=== PATIENT | male | born 1970 | race Caucasian/White ===

== ENCOUNTER 2023-08-25 09:18 | Outpatient (CLI) | payer OTHER, SELFPAY ==
--- OUTSIDE RECORDS SUMMARY | 2023-08-25 09:34 | XMS_ITS | Clinical Summary ---
Author Organization [employer] Address [address], [place] [address] Care Team Providers Care Radio Interference Trouble Shooter Name Role Phone Denisha Gordon PA-C Primary Care Provider [phone] Source Comments You are receiving this document as you are listed as the primary care provider,follow-up provider, or the patient has been referred to you for consultation.This is in compliance with the Medicare and[facility] System[facility] EHR Incentive Program,which states Providers who transition their patient to another setting of careor provider of care or refers their patient to another provider of care shouldprovide summary care record for each transition of care or referral. [employer] Allergies Active Allergy Reactions Criticality Noted Date Comments Ergocalciferol Other, see comments 08/01/2005 kidney stone Medications Medication Sig Dispensed Refills Start Date End Date Status loratadine (CLARITIN) 10 MG tablet Take 1 tablet by mouth daily as needed. LW Addl Instr:Indicated for: Allergies 90 3 05/11/2007 Active Multiple Vitamins-Minerals (MULTIVITAMIN ADULT OR) Take 1 tablet by mouth daily (every 24 hours). 02/12/2012 Active fluticasone (FLONASE) 50 MCG/ACT nasal solution USE 1 TO 2 SPRAYS IN EACH NOSTRIL DAILY 16 g 3 10/21/2018 Active buPROPion (WELLBUTRIN SR) 150 MG 12 hour release tabletIndications:Samuel or depressive disorder, recurrent, moderate (HRC) TAKE 1 TABLET BY MOUTH TWICE DAILY 180 Tablet 12/12/2021 Active atorvastatin (LIPITOR) 40 MG tabletIndications:Hyp erlipidemia, unspecified hyperlipidemia type (HRC) TAKE 1 TABLET BY MOUTH DAILY AT BEDTIME 90 Tablet 01/03/2022 Active citalopram (CELEXA) 20 MG tabletIndications:Anx iety (HRC) TAKE 1 TABLET BY MOUTH DAILY 90 Tablet 01/03/2022 Active Active Problems Problem Noted Date Diagnosed Date Pre-diabetes 01/16/2021 Hyperlipidemia 03/16/2013 Major depressive disorder, recurrent episode, mo derate 02/12/2012 Anxiety 02/12/2012 Allergic rhinitis 06/29/2007 Resolved Problems Problem Noted Date Diagnosed Date Resolved Date Impaired fasting glucose 04/14/201710/2020 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 04/14/2017 Overview: Lactose Intolerance Immunizations Name Administration Dates Next Due Flu Vac Preserv Free (3+yrs) 02/12/2012,01/11/20 10 Influenza IIV4 (Quadrivalent ) 0.5mL (19531) 01/16/2021,04/14/2017,11/29/2015, 015,10/25/2013 Moderna Monovalent 12+ 07/01/2020,06/03/2020 TDAP (ADACEL) 06/29/2007 Td (7+ yrs) 04/14/2017 Family History Medical History Relation Name Comments Cancer Father Cancer, Colon Father s/p Colectomy with colostomy Cataract Father High Cholesterol Father Colon cance r Stroke Father Arthritis Mother Emphysema Mother High Cholesterol Mother Breast canc er Depression Brother High Cholesterol Brother Anxiety Relation Name Status Comments Father Alive Mother Alive Brother Alive Maternal Grandfather Maternal Grandmother Paternal Grandfather Paternal Grandmother Social History Tobacco Use Types Packs/Day Years Used Date Smoking Tobacco: Never Smokeless Tobacco: Never Alcohol Use Standard Drinks/Week Comments Yes 2 (1 standard drink = 0.6 oz pur e alcohol) monthly PHQ-2 Answer Date Recorded PHQ-2 Score 5 01/16/2021 Sex and Gender Information Value Date Recorded Sex Assigned at Not on file Gender Identity Not on file Sexual Orientation Not on file Last Filed Vital Signs Vital Sign Reading Time Taken Comments Blood Pressure 123/72 01/16/2021 8:56 AM PRECISION INSPECTOR Pulse 66 01/16/2021 8:56 AM PRECISION INSPECTOR Temperature 36.2 ??C (97.2 ??F) 02/14/2014 2:29 PM CS T Respiratory Rate 16 12/28/2012 11:25 AM PRECISION INSPECTOR Oxygen Saturation 98% 12/28/2012 11:25 AM PRECISION INSPECTOR Inhaled Oxygen Concentration - - Weight 85 kg (187 lb 8 oz) 01/16/2021 8:56 AM CS T Height 178 cm (5' 10.08) 01/16/2021 8:56 AM PRECISION INSPECTOR Body Mass Index 26.84 01/16/2021 8:56 AM PRECISION INSPECTOR Plan of Treatment Health Maintenance Due Date Last Done Comments Hep C Screening (Preventive Services) 1971 PSA Screening Discussion 1971 HepB (1) 10/29/1990 FIT Colon Cancer Screening 2015 Colonoscopy 12/28/2017 12/28/2012 (Completed) Zoster/Shingles (1 of 2) 10/29/2021 Adult Preventive Visit 01/16/2022 , 08/17/2018, 04/14/2017, Additional history exists Prediabetes: HGBA1C 01/16/2022 01/16/2021, 11/29/2015, 09/16/2012, Additional history exists COVID-19 Vaccine ( season) 2022 07/01/2020, 06/03/2020 Influenza (#1) 2023 01/16/2021, 03/0 08/2017, 11/29/2015, Additional history exists Cholesterol 01/16/2026 01/16/2021, 03/0 08/2017, 11/29/2015, Additional history exists DTaP/Tdap/Td (3 - Tdap) 04/15/2027 04/15/19 18, 06/29/2007, 06/29/2007 HIV Screening (Preventive Services) Completed 01/16/2021 HepA Aged Out No longer eligi ble based on patient's age to complete this topic Hib Aged Out No longer eligi ble based on patient's age to complete this topic IPV (Polio) Aged Out No longer eligi ble based on patient's age to complete this topic MCV4 Aged Out No longer eligi ble based on patient's age to complete this topic Pneumococcal Aged Out No longer eligi ble based on patient's age to complete this topic Procedures Procedure Name Priority Date/Time Associated Diagnosis Comments HGB A1C Routine 01/16/2021 9:47 AM PRECISION INSPECTOR Pre-diabetes HIV 1/2 AG/AB 4TH GEN Routine 01/16/2021 9:47 AM PRECISION INSPECTOR Screening for HIV (human immunodeficiency virus) LIPID PANEL & DIRECT LDL (IF NEEDED) Routine 01/16/2021 9:47 AM PRECISION INSPECTOR Hyperlipidemia, unspecified hyperlipidemia type from Last 3 Months or Most Recently Relevant to Health Maintenance Results * HIV 1/2 Ag/Ab 4th Generation (01/16/2021 9:47 AM PRECISION INSPECTOR) Pathologist [facility] HIV 1/2 Antigen/Antib flaco (4th generation) Negative (Non Reactive) Negative (Non Reactive) 01/16/2021 1:44 PM PRECISION INSPECTOR [facility] Comment:HIV-1 p24 Antigen an d HIV-1/HIV-2 Antibody not detected Blood Venipuncture / Unknown 01/16/2021 9:47 AM PRECISION INSPECTOR 01/16/2021 9:47 AM PRECISION INSPECTOR Denisha Gordon PA-C LAB_1 [facility] [address] * (ABNORMAL) Lipid Panel - LDLD If Trig High (01/16/2021 9:47 AM PRECISION INSPECTOR) Pathologist [facility] Cholesterol 157 0 - 199 mg/dL 01/16/2021 3:30 PM [facility] Triglyceride 260(H) <=149 mg/dL 01/16/2021 3:30 PM [facility] HDL Cholesterol 28(L) >=40 mg/dL 3:30 PM [facility] LDL, Calculated 77 <130 mg/dL 3:30 PM [facility] Non HDL Chol, Calculated 129 <=159 mg/dL 01/16/2021 3:30 PM [facility] Cholesterol/HDL Ratio 5.6 01/16/2021 3:30 PM PRECISION INSPECTOR [facility] Hours Fasting 12 01/16/2021 3:30 PM PRECISION INSPECTOR [facility] Blood Venipuncture / Unknown 01/16/2021 9:47 AM PRECISION INSPECTOR 01/16/2021 9:47 AM PRECISION INSPECTOR Denisha Gordon PA-C LAB[facility]1 [facility] [address] [place] [address], [facility] [phone] [facility] [address] [place] [address], [place] [phone] * (ABNORMAL) Hgb A1C (01/16/2021 9:47 AM PRECISION INSPECTOR) Hemoglobin A1C 10.8(H) <=5.6 % 01/16/2021 2:24 PM PRECISION INSPECTOR [facility] Blood Venipuncture / Unknown 01/16/2021 9:47 AM PRECISION INSPECTOR 01/16/2021 9:47 AM PRECISION INSPECTOR Narrative [facility] - 01/16/2021 2:24 PM PRECISION INSPECTOR For patients not previously diagnosed with diabetes: 5.7-6.4%: Increased risk for diabetes 6.5% and greater: Diagnostic for diabetes For patients diagnosed with diabetes: <8.0%: Goal of therapy for ages 18-75 Clinicians may recommend a higher or lower goal for specific individuals. Denisha Gordon PA-C LAB[facility]1 [facility] [address] [address], [facility] [phone] from Last 3 Months or Most Recently Relevant to Health Maintenance Care Teams Radio Interference Trouble Shooter Relationship Specialty Start Date End Date Denisha Gordon, PAChuckyC [address] [place] [address] PCP - General Physician Electromechanic 04/14/17
== END 2023-08-25 09:19 | disposition home or self-care (01) ==
PROVIDERS: Visit Provider Family Medicine
DX: E78.5 Hyperlipidemia, unspecified (principal); R53.83 Other fatigue; M25.50 Pain in unspecified joint; R21 Rash and other nonspecific skin eruption; Z12.5 Encounter for screening for malignant neoplasm of prostate
CPT/HCPCS: 80053; 80061; 84443; 86140; 86618; G0103

== ENCOUNTER 2023-09-02 10:53 | Outpatient (CLI) | payer OTHER, SELFPAY ==
--- OUTSIDE RECORDS SUMMARY | 2023-09-06 10:26 | XMS_ITS | Clinical Summary ---
Author Organization [employer] Address [address] [address] Care Team Providers Care Plastic Battery Assembler Name Role Phone Denisha Gordon PA-C Primary Care Provider [phone] Source Comments You are receiving this document as you are listed as the primary care provider,follow-up provider, or the patient has been referred to you for consultation.This is in compliance with the Medicare and[facility] EHR Incentive Program,which states Providers who transition their patient to another setting of careor provider of care or refers their patient to another provider of care shouldprovide summary care record for each transition of care or referral. [employer] Allergies Active Allergy Reactions Criticality Noted Date [...] 02/12/2012,01/11/20 10 Influenza IIV4 (Quadrivalent ) 0.5mL (47952) 01/16/2021,04/14/2017,11/29/2015, 015,10/25/2013 Moderna Monovalent 12+ 07/01/2020,06/03/2020 TDAP [...] Comments Blood Pressure 123/72 01/16/2021 8:56 AM POLITICAL WORKER Pulse 66 01/16/2021 8:56 AM POLITICAL WORKER Temperature 36.2 ??C (97.2 ??F) 02/14/2014 2:29 PM CS T Respiratory Rate 16 12/28/2012 11:25 AM POLITICAL WORKER Oxygen Saturation 98% 12/28/2012 11:25 AM POLITICAL WORKER Inhaled Oxygen Concentration - - Weight 85 kg (187 lb 8 oz) 01/16/2021 8:56 AM CS T Height 178 cm (5' 10.08) 01/16/2021 8:56 AM POLITICAL WORKER Body Mass Index 26.84 01/16/2021 8:56 AM POLITICAL WORKER Plan of Treatment Health Maintenance Due Date [...] Comments HGB A1C Routine 01/16/2021 9:47 AM POLITICAL WORKER Pre-diabetes HIV 1/2 AG/AB 4TH GEN Routine 01/16/2021 9:47 AM POLITICAL WORKER Screening for HIV (human immunodeficiency virus) LIPID PANEL & DIRECT LDL (IF NEEDED) Routine 01/16/2021 9:47 AM POLITICAL WORKER Hyperlipidemia, unspecified hyperlipidemia type from Last 3 Months or Most Recently Relevant to Health Maintenance Results * HIV 1/2 Ag/Ab 4th Generation (01/16/2021 9:47 AM POLITICAL WORKER) Pathologist [facility] HIV 1/2 Antigen/Antib flaco (4th generation) Negative (Non Reactive) Negative (Non Reactive) 01/16/2021 1:44 PM POLITICAL WORKER [facility] Comment:HIV-1 p24 Antigen an d HIV-1/HIV-2 Antibody not detected Blood Venipuncture / Unknown 01/16/2021 9:47 AM POLITICAL WORKER 01/16/2021 9:47 AM POLITICAL WORKER Denisha Gordon PA-C LAB_1 [facility] [address] * (ABNORMAL) Lipid Panel - LDLD If Trig High (01/16/2021 9:47 AM POLITICAL WORKER) Pathologist [facility] Cholesterol 157 0 - 199 mg/dL 01/16/2021 3:30 PM [facility] Triglyceride 260(H) <=149 mg/dL 01/16/2021 3:30 PM [facility] HDL Cholesterol 28(L) >=40 mg/dL 3:30 PM [facility] LDL, Calculated 77 <130 mg/dL 3:30 PM [facility] Non HDL Chol, Calculated 129 <=159 mg/dL 01/16/2021 3:30 PM [facility] Cholesterol/HDL Ratio 5.6 01/16/2021 3:30 PM POLITICAL WORKER [facility] Hours Fasting 12 01/16/2021 3:30 PM POLITICAL WORKER [facility] Blood Venipuncture / Unknown 01/16/2021 9:47 AM POLITICAL WORKER 01/16/2021 9:47 AM POLITICAL WORKER Denisha Gordon PA-C LAB_1 [facility] [address] [place] [address], [facility] [phone] [facility] [address] [place] [address], [place] [phone] * (ABNORMAL) Hgb A1C (01/16/2021 9:47 AM POLITICAL WORKER) Hemoglobin A1C 10.8(H) <=5.6 % 01/16/2021 2:24 PM POLITICAL WORKER [facility] Blood Venipuncture / Unknown 01/16/2021 9:47 AM POLITICAL WORKER 01/16/2021 9:47 AM POLITICAL WORKER Narrative [facility] - 01/16/2021 2:24 PM POLITICAL WORKER For patients not previously diagnosed with diabetes: 5.7-6.4%: Increased risk for diabetes 6.5% and greater: Diagnostic for diabetes For patients diagnosed with diabetes: <8.0%: Goal of therapy for ages 18-75 Clinicians may recommend a higher or lower goal for specific individuals. Denisha Gordon PA-C LAB[facility]1 [facility] [address] [address], [facility] [phone] from Last 3 Months or Most Recently Relevant to Health Maintenance Care Teams Plastic Battery Assembler Relationship Specialty Start Date End Date Denisha Gordon, PAChuckyC [address] [place] [address] PCP - General Physician Porcelain Finisher 04/14/17
== END 2023-09-02 10:54 | disposition home or self-care (01) ==
LOC: NFLDREF 09-06 10:18
PROVIDERS: PCP Family Medicine; Visit Provider Family Medicine
DX: Z00.00 Encounter for general adult medical examination without abnormal findings (principal); E11.9 Type 2 diabetes mellitus without complications; F33.0 Major depressive disorder, recurrent, mild; F41.9 Anxiety disorder, unspecified; E78.5 Hyperlipidemia, unspecified; R21 Rash and other nonspecific skin eruption; E11.65 Type 2 diabetes mellitus with hyperglycemia
CPT/HCPCS: 84681; 86341

== ENCOUNTER 2023-09-28 10:10 | Outpatient (CLI) | payer OTHER, SELFPAY ==
--- OUTSIDE RECORDS SUMMARY | 2023-09-28 10:12 | XMS_ITS | Clinical Summary ---
Author Organization [facility] Address [address], [place] [address] Care Team Providers Care Poultry Offal Worker Name Role Phone Denisha Gordon PA-C Primary Care Provider [phone] Source Comments You are receiving this document as you are listed as the primary care provider,follow-up provider, or the patient has been referred to you for consultation.This is in compliance with the Medicare and[facility] EHR Incentive Program,which states Providers who transition their patient to another setting of careor provider of care or refers their patient to another provider of care shouldprovide summary care record for each transition of care or referral. [facility] Allergies Active Allergy Reactions Criticality Noted Date [...] de ficiencies and disaccharide malabsorption 06/29/2007 04/14/2017 Overview (09/30/2016): Lactose Intolerance Immunizations Name Administration Dates Next Due Flu Vac Preserv Free (3+yrs) 02/12/2012,01/11/20 10 Influenza IIV4 (Quadrivalent ) 0.5mL (43304) 01/16/2021,04/14/2017,11/29/2015, 015,10/25/2013 Moderna Monovalent 12+ 07/01/2020,06/03/2020 TDAP [...] Comments Blood Pressure 123/72 01/16/2021 8:56 AM MANAGER STORE Pulse 66 01/16/2021 8:56 AM MANAGER STORE Temperature 36.2 ??C (97.2 ??F) 02/14/2014 2:29 PM CS T Respiratory Rate 16 12/28/2012 11:25 AM MANAGER STORE Oxygen Saturation 98% 12/28/2012 11:25 AM MANAGER STORE Inhaled Oxygen Concentration - - Weight 85 kg (187 lb 8 oz) 01/16/2021 8:56 AM CS T Height 178 cm (5' 10.08) 01/16/2021 8:56 AM MANAGER STORE Body Mass Index 26.84 01/16/2021 8:56 AM MANAGER STORE Plan of Treatment Health Maintenance Due Date [...] Comments HGB A1C Routine 01/16/2021 9:47 AM MANAGER STORE Pre-diabetes HIV 1/2 AG/AB 4TH GEN Routine 01/16/2021 9:47 AM MANAGER STORE Screening for HIV (human immunodeficiency virus) LIPID PANEL & DIRECT LDL (IF NEEDED) Routine 01/16/2021 9:47 AM MANAGER STORE Hyperlipidemia, unspecified hyperlipidemia type from Last 3 Months or Most Recently Relevant to Health Maintenance Results * HIV 1/2 Ag/Ab 4th Generation (01/16/2021 9:47 AM MANAGER STORE) HIV 1/2 Antigen/Antib flaco (4th generation) Negative (Non Reactive) Negative (Non Reactive) 01/16/2021 1:44 PM MANAGER STORE [facility] Comment:HIV-1 p24 Antigen an d HIV-1/HIV-2 Antibody not detected Blood Venipuncture / Unknown 01/16/2021 9:47 AM MANAGER STORE 01/16/2021 9:47 AM MANAGER STORE Denisha Gordon PA-C LAB[facility]1 [facility] [address] * (ABNORMAL) Lipid Panel - LDLD If Trig High (01/16/2021 9:47 AM MANAGER STORE) Cholesterol 157 0 - 199 mg/dL 01/16/2021 3:30 PM [facility] Triglyceride 260(H) <=149 mg/dL 01/16/2021 3:30 PM [facility] HDL Cholesterol 28(L) >=40 mg/dL 3:30 PM [facility] LDL, Calculated 77 <130 mg/dL 3:30 PM [facility] Non HDL Chol, Calculated 129 <=159 mg/dL 01/16/2021 3:30 PM [facility] Cholesterol/HDL Ratio 5.6 01/16/2021 3:30 PM MANAGER STORE [facility] Hours Fasting 12 01/16/2021 3:30 PM MANAGER STORE [facility] Blood Venipuncture / Unknown 01/16/2021 9:47 AM MANAGER STORE 01/16/2021 9:47 AM MANAGER STORE Denisha Gordon PA-C LAB[facility]1 [facility] [address] [place] [address], [place] [phone] [facility] [address] [place] [address], [facility] [phone] * (ABNORMAL) Hgb A1C (01/16/2021 9:47 AM MANAGER STORE) Hemoglobin A1C 10.8(H) <=5.6 % 01/16/2021 2:24 PM MANAGER STORE [email or web address] Blood Venipuncture / Unknown 01/16/2021 9:47 AM MANAGER STORE 01/16/2021 9:47 AM MANAGER STORE Narrative [facility] - 01/16/2021 2:24 PM MANAGER STORE For patients not previously diagnosed with diabetes: 5.7-6.4%: Increased risk for diabetes 6.5% and greater: Diagnostic for diabetes For patients diagnosed with diabetes: <8.0%: Goal of therapy for ages 18-75 Clinicians may recommend a higher or lower goal for specific individuals. Denisha Gordon PA-C LAB[facility]1 [facility] [address] [address], [facility] [phone] from Last 3 Months or Most Recently Relevant to Health Maintenance Care Teams Poultry Offal Worker Relationship Specialty Start Date End Date Denisha Gordon PA-C [address] [place] [address] PCP - General Physician Resilient Tile Installer 04/14/17
== END 2023-09-28 10:11 | disposition home or self-care (01) ==
LOC: OP CLINIC 10:11
PROVIDERS: PCP Family Medicine; Visit Provider Surgery
DX: Z53.8 Procedure and treatment not carried out for other reasons (principal)

== ENCOUNTER 2023-10-29 09:44 | Outpatient (CLI) | payer OTHER, SELFPAY ==
--- OUTSIDE RECORDS SUMMARY | 2023-10-29 09:46 | XMS_ITS | Clinical Summary ---
Author Organization [employer] Address [address], [place] [address] Care Team Providers Care Senior Product Manager Name Role Phone Denisha Gordon PA-C Primary Care Provider [phone] Source Comments You are receiving this document as you are listed as the primary care provider,follow-up provider, or the patient has been referred to you for consultation.This is in compliance with the Medicare and[facility] EHR Incentive Program,which states Providers who transition their patient to another setting of careor provider of care or refers their patient to another provider of care shouldprovide summary care record for each transition of care or referral. [employer] Allergies Active Allergy Reactions Criticality Noted Date [...] 02/12/2012,01/11/20 10 Influenza IIV4 (Quadrivalent ) 0.5mL ([id number]) 01/16/2021,04/14/2017,11/29/2015, 015,10/25/2013 Moderna Monovalent 12+ 07/01/2020,06/03/2020 TDAP [...] Comments Blood Pressure 123/72 01/16/2021 8:56 AM AUTOMOTIVE PAINTER Pulse 66 01/16/2021 8:56 AM AUTOMOTIVE PAINTER Temperature 36.2 ??C (97.2 ??F) 02/14/2014 2:29 PM CS T Respiratory Rate 16 12/28/2012 11:25 AM AUTOMOTIVE PAINTER Oxygen Saturation 98% 12/28/2012 11:25 AM AUTOMOTIVE PAINTER Inhaled Oxygen Concentration - - Weight 85 kg (187 lb 8 oz) 01/16/2021 8:56 AM CS T Height 178 cm (5' 10.08) 01/16/2021 8:56 AM AUTOMOTIVE PAINTER Body Mass Index 26.84 01/16/2021 8:56 AM AUTOMOTIVE PAINTER Plan of Treatment Health Maintenance Due Date Last Done Comments Hep C Screening (Preventive Services) 1971 PSA Screening Discussion 1971 HepB (1) 10/29/1990 FIT Colon Cancer Screening 2015 Colonoscopy 12/28/2017 12/28/2012 (Completed) Zoster/Shingles (1 of 2) 10/29/2021 Adult Preventive Visit 01/16/2022 , 08/17/2018, 04/14/2017, Additional history exists Prediabetes: HGBA1C 01/16/2022 01/16/2021, 11/29/2015, 09/16/2012, Additional history exists COVID-19 Vaccine ( season) 2023 07/01/2020, 06/03/2020 Influenza (#1) 2023 01/16/2021, 03/0 [...] Comments HGB A1C Routine 01/16/2021 9:47 AM AUTOMOTIVE PAINTER Pre-diabetes HIV 1/2 AG/AB 4TH GEN Routine 01/16/2021 9:47 AM AUTOMOTIVE PAINTER Screening for HIV (human immunodeficiency virus) LIPID PANEL & DIRECT LDL (IF NEEDED) Routine 01/16/2021 9:47 AM AUTOMOTIVE PAINTER Hyperlipidemia, unspecified hyperlipidemia type from Last 3 Months or Most Recently Relevant to Health Maintenance Results * HIV 1/2 Ag/Ab 4th Generation (01/16/2021 9:47 AM AUTOMOTIVE PAINTER) HIV 1/2 Antigen/Antib flaco (4th generation) Negative (Non Reactive) Negative (Non Reactive) 01/16/2021 1:44 PM AUTOMOTIVE PAINTER [facility] Comment:HIV-1 p24 Antigen an d HIV-1/HIV-2 Antibody not detected Blood Venipuncture / Unknown 01/16/2021 9:47 AM AUTOMOTIVE PAINTER 01/16/2021 9:47 AM AUTOMOTIVE PAINTER Denisha Gordon PA-C LAB[facility]1 [facility] [address] * (ABNORMAL) Lipid Panel - LDLD If Trig High (01/16/2021 9:47 AM AUTOMOTIVE PAINTER) Cholesterol 157 0 - 199 mg/dL 01/16/2021 3:30 PM [facility] Triglyceride 260(H) <=149 mg/dL 01/16/2021 3:30 PM [facility] HDL Cholesterol 28(L) >=40 mg/dL 3:30 PM [facility] LDL, Calculated 77 <130 mg/dL 3:30 PM [facility] Non HDL Chol, Calculated 129 <=159 mg/dL 01/16/2021 3:30 PM [facility] Cholesterol/HDL Ratio 5.6 01/16/2021 3:30 PM AUTOMOTIVE PAINTER [facility] Hours Fasting 12 01/16/2021 3:30 PM AUTOMOTIVE PAINTER [facility] Blood Venipuncture / Unknown 01/16/2021 9:47 AM AUTOMOTIVE PAINTER 01/16/2021 9:47 AM AUTOMOTIVE PAINTER Denisha Gordon PA-C LAB[facility]1 [facility] [address] [place] [address], [place] [phone] [facility] [address] [place] [address], [facility] [phone] * (ABNORMAL) Hgb A1C (01/16/2021 9:47 AM AUTOMOTIVE PAINTER) Hemoglobin A1C 10.8(H) <=5.6 % 01/16/2021 2:24 PM AUTOMOTIVE PAINTER [facility] Blood Venipuncture / Unknown 01/16/2021 9:47 AM AUTOMOTIVE PAINTER 01/16/2021 9:47 AM AUTOMOTIVE PAINTER Narrative [facility] - 01/16/2021 2:24 PM AUTOMOTIVE PAINTER For patients not previously diagnosed with diabetes: 5.7-6.4%: Increased risk for diabetes 6.5% and greater: Diagnostic for diabetes For patients diagnosed with diabetes: <8.0%: Goal of therapy for ages 18-75 Clinicians may recommend a higher or lower goal for specific individuals. Denisha Gordon PA-C [facility] [address] [address], [facility] [phone] from Last 3 Months or Most Recently Relevant to Health Maintenance Care Teams Senior Product Manager Relationship Specialty Start Date End Date Denisha Gordon PA-C [address] [place] [address] PCP - General Physician Cam Milling Machine Operator 04/14/17
--- NOTE | 2023-10-29 11:22 | W.ANESCHARGE ---
Anesthesia Charges Start Date/Time Anesthesia Start Date: 10/29/23 Anesthesia Start Time: 10:45 Stop Date/Time Anesthesia Stop Date: 10/29/23 Anesthesia Stop Time: 11:22
--- NOTE | 2023-10-29 13:39 | W.ANESCHARGE ---
Anesthesia Charges Start Date/Time Anesthesia Start Date: 10/29/23 Anesthesia Start Time: 10:45 Stop Date/Time Anesthesia Stop Date: 10/29/23 Anesthesia Stop Time: 11:22
== END 2023-10-29 09:45 | disposition home or self-care (01) ==
LOC: OP CLINIC 09:45
PROVIDERS: PCP Family Medicine; Visit Provider Surgery
DX: Z12.11 Encounter for screening for malignant neoplasm of colon (principal); K57.30 Diverticulosis of large intestine without perforation or abscess without bleeding
CPT/HCPCS: 00811; 00812; 45378; J2704

== ENCOUNTER 2023-11-15 08:05 | Outpatient (CLI) | payer OTHER, SELFPAY ==
--- OUTSIDE RECORDS SUMMARY | 2023-11-16 21:52 | XMS_ITS | Clinical Summary ---
Author Organization [employer] Address [address] [address] Care Team Providers Care Director Game Name Role Phone Denisha Gordon PA-C Primary Care Provider [phone] Source Comments You are receiving this document as you are listed as the primary care provider,follow-up provider, or the patient has been referred to you for consultation.This is in compliance with the Medicare and[facility] EHR Incentive Program,which states Providers who transition their patient to another setting of careor provider of care or refers their patient to another provider of care shouldprovide summary care record for each transition of care or referral. [employer] Allergies Active Allergy Reactions Criticality Noted Date [...] 02/12/2012,01/11/20 10 Influenza IIV4 (Quadrivalent ) 0.5mL (16489) 01/16/2021,04/14/2017,11/29/2015, 015,10/25/2013 Moderna Monovalent 12+ 07/01/2020,06/03/2020 TDAP [...] Comments Blood Pressure 123/72 01/16/2021 8:56 AM PATIENT CARE DIRECTOR Pulse 66 01/16/2021 8:56 AM PATIENT CARE DIRECTOR Temperature 36.2 ??C (97.2 ??F) 02/14/2014 2:29 PM CS T Respiratory Rate 16 12/28/2012 11:25 AM PATIENT CARE DIRECTOR Oxygen Saturation 98% 12/28/2012 11:25 AM PATIENT CARE DIRECTOR Inhaled Oxygen Concentration - - Weight 85 kg (187 lb 8 oz) 01/16/2021 8:56 AM CS T Height 178 cm (5' 10.08) 01/16/2021 8:56 AM PATIENT CARE DIRECTOR Body Mass Index 26.84 01/16/2021 8:56 AM PATIENT CARE DIRECTOR Plan of Treatment Health Maintenance Due Date [...] on patient's age to complete this topic RSV Aged Out No longer eligi ble based on patient's age to complete this topic MCV4 Aged Out No longer eligi ble based on patient's age to complete this topic Pneumococcal Aged Out No longer eligi ble based on patient's age to complete this topic Procedures Procedure Name Priority Date/Time Associated Diagnosis Comments HGB A1C Routine 01/16/2021 9:47 AM PATIENT CARE DIRECTOR Pre-diabetes HIV 1/2 AG/AB 4TH GEN Routine 01/16/2021 9:47 AM PATIENT CARE DIRECTOR Screening for HIV (human immunodeficiency virus) LIPID PANEL & DIRECT LDL (IF NEEDED) Routine 01/16/2021 9:47 AM PATIENT CARE DIRECTOR Hyperlipidemia, unspecified hyperlipidemia type from Last 3 Months or Most Recently Relevant to Health Maintenance Results * HIV 1/2 Ag/Ab 4th Generation (01/16/2021 9:47 AM PATIENT CARE DIRECTOR) HIV 1/2 Antigen/Antib flaco (4th generation) Negative (Non Reactive) Negative (Non Reactive) 01/16/2021 1:44 PM PATIENT CARE DIRECTOR [facility] Comment:HIV-1 p24 Antigen an d HIV-1/HIV-2 Antibody not detected Blood Venipuncture / Unknown 01/16/2021 9:47 AM PATIENT CARE DIRECTOR 01/16/2021 9:47 AM PATIENT CARE DIRECTOR Denisha Gordon PA-C [facility] [address] * (ABNORMAL) Lipid Panel - LDLD If Trig High (01/16/2021 9:47 AM PATIENT CARE DIRECTOR) Cholesterol 157 0 - 199 mg/dL 01/16/2021 3:30 PM [facility] Triglyceride 260(H) <=149 mg/dL 01/16/2021 3:30 PM PATIENT CARE DIRECTOR [facility] HDL Cholesterol 28(L) >=40 mg/dL 3:30 PM [facility] LDL, Calculated 77 <130 mg/dL 3:30 PM [facility] Non HDL Chol, Calculated 129 <=159 mg/dL 01/16/2021 3:30 PM PATIENT CARE DIRECTOR [facility] Cholesterol/HDL Ratio 5.6 01/16/2021 3:30 PM PATIENT CARE DIRECTOR [facility] Hours Fasting 12 01/16/2021 3:30 PM PATIENT CARE DIRECTOR [facility] Blood Venipuncture / Unknown 01/16/2021 9:47 AM PATIENT CARE DIRECTOR 01/16/2021 9:47 AM PATIENT CARE DIRECTOR Denisha Gordon PA-C [facility] [address] [place] [address], [facility] [phone] [facility] [address] [place] [address], [facility] [phone] * (ABNORMAL) Hgb A1C (01/16/2021 9:47 AM PATIENT CARE DIRECTOR) Hemoglobin A1C 10.8(H) <=5.6 % 01/16/2021 2:24 PM PATIENT CARE DIRECTOR [facility] Blood Venipuncture / Unknown 01/16/2021 9:47 AM PATIENT CARE DIRECTOR 01/16/2021 9:47 AM PATIENT CARE DIRECTOR Narrative [facility] - 01/16/2021 2:24 PM PATIENT CARE DIRECTOR For patients not previously diagnosed with diabetes: 5.7-6.4%: Increased risk for diabetes 6.5% and greater: Diagnostic for diabetes For patients diagnosed with diabetes: <8.0%: Goal of therapy for ages 18-75 Clinicians may recommend a higher or lower goal for specific individuals. Denisha Gordon PA-C [facility]1 [facility] [address] [address], [facility] [phone] from Last 3 Months or Most Recently Relevant to Health Maintenance Care Teams Director Game Relationship Specialty Start Date End Date Denisha Gordon PA-C [address] [place] [address] PCP - General Physician Treasurer 04/14/17
== END 2023-11-15 08:06 | disposition home or self-care (01) ==
PROVIDERS: PCP Family Medicine; Referring Provider Family Medicine; Visit Provider Family Medicine
DX: E11.65 Type 2 diabetes mellitus with hyperglycemia (principal); E78.5 Hyperlipidemia, unspecified; Z79.84 Long term (current) use of oral hypoglycemic drugs
CPT/HCPCS: 80061; 82043; 82570

== ENCOUNTER 2024-02-23 08:35 | Outpatient (CLI) | payer OTHER, SELFPAY | END 2024-02-23 08:36 | disposition home or self-care (01) | LOC: NFLDREF 03-02 12:29 | PROVIDERS: PCP Family Medicine; Referring Provider Family Medicine; Visit Provider Family Medicine | DX: E78.5 Hyperlipidemia, unspecified (principal); E11.9 Type 2 diabetes mellitus without complications | CPT/HCPCS: 80061 ==

== ENCOUNTER 2024-08-31 08:56 | Outpatient (CLI) | payer OTHER, SELFPAY | END 2024-08-31 08:57 | disposition home or self-care (01) | LOC: NFLDREF 09-01 08:42 | PROVIDERS: PCP Family Medicine; Referring Provider Family Medicine; Visit Provider Family Medicine | DX: E11.65 Type 2 diabetes mellitus with hyperglycemia (principal); E78.5 Hyperlipidemia, unspecified; R53.83 Other fatigue | CPT/HCPCS: 80053; 80061; 82043; 82570 ==